=== PATIENT | female | born 1985 | race Two or more races ===

== ENCOUNTER 2020-09-10 10:07 | Outpatient (REF) | payer OTHER, SELFPAY ==
[2020-09-10 10:16] LABS: COVID-19 Test Positive (Negative)
== END 2020-09-10 10:08 | disposition home or self-care (01) ==
LOC: HO.EMPCOV 10:07
PROVIDERS: Visit Provider Internal Medicine
DX: Z20.822 Contact with and (suspected) exposure to COVID-19 (principal)
CPT/HCPCS: 36415; 87635; C9803

== ENCOUNTER 2020-12-17 11:36 | Outpatient (REF) | payer OTHER, SELFPAY | END 2020-12-17 11:37 | disposition home or self-care (01) | LOC: HO.LAB 11:36 | PROVIDERS: Visit Provider Internal Medicine | DX: Z20.822 Contact with and (suspected) exposure to COVID-19 (principal) | CPT/HCPCS: C9803; U0003; U0005 ==

== ENCOUNTER 2020-12-20 09:54 | Outpatient (REF) | payer OTHER, SELFPAY | END 2020-12-20 09:55 | disposition home or self-care (01) | LOC: HO.LAB 09:54 | PROVIDERS: Visit Provider Internal Medicine | DX: Z20.822 Contact with and (suspected) exposure to COVID-19 (principal) | CPT/HCPCS: C9803; U0003; U0005 ==

== ENCOUNTER 2020-12-21 13:33 | Outpatient (REF) | payer OTHER, SELFPAY ==
[2020-12-21 14:31] LABS: Influenza A PCR NEGATIVE (Negative); Influenza B PCR NEGATIVE (Negative); Resp Syncy Virus RNA Qual PCR NEGATIVE (Negative); SARS COV2 PCR INHOUSE NEGATIVE (Negative)
== END 2020-12-21 13:34 | disposition home or self-care (01) ==
LOC: HO.LAB 13:33
PROVIDERS: PCP Psychiatry & Neurology Neurology; Referring Provider Internal Medicine; Visit Provider Internal Medicine
DX: Z20.822 Contact with and (suspected) exposure to COVID-19 (principal)
CPT/HCPCS: 0241U; 36415

== ENCOUNTER 2021-05-14 18:53 | Emergency (ER) | payer OTHER, SELFPAY ==
--- NOTE | ~2021-05-14 | CT_ITS ---
EXAMINATION: CT ABDOMEN AND PELVIS WITH CONTRAST CLINICAL INFORMATION: Lower abdominal pain. COMPARISON: Pelvic ultrasound done earlier the same day. TECHNIQUE: Multidetector volumetric images were obtained from the superior aspect of the liver through the pubic symphysis following administration 85 mL of Omnipaque 350 intravenous contrast. Sagittal and coronal reformatted images were obtained on the technologist's workstation. Oral Contrast: No. This CT examination was performed using dose optimization techniques as appropriate, variously including the following: *Automated exposure control. *Adjustment of mA and/or kV according to patient size (this includes techniques or standardized protocols for targeted exams where dose is matched to indication/reason for exam; i.e. extremities or head). *Use of iterative reconstruction technique. DLP: 589 mGy-cm FINDINGS: LUNG BASES: The visualized lung bases are unremarkable. LIVER, GALLBLADDER, AND BILIARY TREE: The liver is normal in size, shape, and attenuation. Posterior right hepatic 0.3 cm hypodensity, too small to characterize. No additional focal hepatic lesion or biliary ductal dilatation is present. The gallbladder is unremarkable with no evidence of radiopaque gallstones, gallbladder wall thickening, or obvious pericholecystic inflammatory changes. PANCREAS: Unremarkable. SPLEEN: Unremarkable. ADRENAL GLANDS: Unremarkable. KIDNEYS AND URETERS: The kidneys are normal in size, shape, and attenuation. No hydronephrosis, hydroureter, or calculi seen. No perinephric stranding. BLADDER: Unremarkable. GASTROINTESTINAL TRACT: No bowel wall thickening or associated inflammatory change. No small or large bowel obstruction. Unremarkable appendix. PERITONEAL CAVITY: Trace pelvic free fluid. No organized fluid collection/abscess formation. No intra-abdominal mass. No intra-abdominal free air. ABDOMINAL WALL: No significant hernia is appreciated. LYMPH NODES: Normal. VASCULAR: Unremarkable. PELVIC VISCERA: IUD within the uterus. Bilateral ovarian follicles, better evaluated on the pelvic ultrasound done earlier the same day. OSSEOUS STRUCTURES: Unremarkable. CT/CT abdomen pelvis w con IMPRESSION: 1. No bowel wall thickening or associated inflammatory change. No small or large bowel obstruction. Unremarkable appendix. 2. Trace pelvic free fluid. IUD within the uterus. Bilateral ovarian follicles. Findings better evaluated on the pelvic ultrasound done earlier the same day. 3. No intra-abdominal mass, lymphadenopathy, or abscess formation.
--- NOTE | ~2021-05-14 | US_ITS ---
EXAMINATION: US PELVIS CLINICAL INFORMATION: Lower abdominal pain. Last menstrual period 2 weeks ago. COMPARISON: No similar priors. TECHNIQUE: Ultrasound of the pelvis is performed using both transabdominal and transvaginal transducers along with Doppler. Transvaginal imaging is performed due to inadequate visualization transabdominally. FINDINGS: Uterus: The uterus is anteverted and measures 9.1 x 4.4 x 5.0 cm. Normal myometrial echogenicity. No visible fibroid. The endometrium measures up to 11 mm in maximum thickness without focal abnormalities. An IUD is in appropriate positioning within the endometrial cavity. Nabothian cysts overlies the region of the cervix. Adnexa: Both ovaries are visualized. There is normal color flow to the adnexa. There is no ovarian torsion. There is no pelvic ascites or fluid collection. Right ovary measures 5.3 x 2.4 x 2.6 cm. Left ovary measures 3.9 x 3.5 x 2.7 cm. There is a 1.9 x 0.9 x 1.6 cm avascular cystic lesion in the left ovary with an hyperechoic and thick rim and hyperemia, most consistent with a corpus luteal cyst, not requiring further workup. US/US pelvic and transvaginal IMPRESSION: No acute sonographic abnormalities. No evidence of ovarian torsion at the moment of this study. IUD in appropriate positioning.
--- NOTE | 2021-05-14 19:05 | ED.ABDPAIN ---
HPI - Abdominal Pain General Chief Complaint: Abdominal Pain Stated Complaint: abd pain, nausea Time Seen by Provider: 05/14/21 19:05 Source: patient Mode of arrival: ambulatory Limitations: no limitations History of Present Illness HPI narrative: 35-year-old female no medical history presents N/C department with sudden onset abdominal pain x1 hour. She states that the pain came on suddenly with severe in nature, and then the pain diminished a little bit. She also reports associated nausea, fatigue and feeling lightheaded. She states that she only felt lightheaded when she was having the severe abdominal pain. Pain is localized above the suprapubic region, it does not radiate. The pain initially was a 10/10, however now it is about a 7/10, it is constant in nature. LMP 2 weeks ago. Denies chest pain, shortness of breath, fevers, chills, and vomiting. No previous abdominal surgeries MD elicited complaint: abdominal pain Pertinent past history: none Onset (ago): hour(s) (1) Pain Consistency: constant Location: suprapubic Severity: severe Pain scale (0-10): 7 Quality: stabbing and sharp Radiation: suprapubic Migration to: no migration Exacerbating factors: nothing Relieving factors: nothing Associated symptoms: nausea and other (lightheaded) Related Data Previous Rx's Medication Instructions Recorded lorazepam 0.5 mg tablet (Ativan) 0.5 mg PO DAILY PRN #14 tab 10/25/20 Allergies Allergy/AdvReac Type Severity Reaction Status Date / Time No Known Allergies Allergy Verified 10/25/20 09:54 Review of Systems Review of Systems Constitutional : No Weight loss, No Fever, No Chills, No Night Sweats, No Fatigue, No Malaise ENT/Mouth : No Hearing loss, No Ear Pain, No Nasal Congestion, No Sinus Pain, No Hoarseness, No sore throat, No Rhinorrhea, No Swallowing Difficulty Eyes: No Eye Pain, No Swelling, No Redness, No Foreign Body, No Discharge, No Vision Changes Cardiovascular : No Chest Pain, No SOB, No Dyspnea on Exertion, No Orthopnea, No Edema, No Palpitations Respiratory : No Cough, No Sputum, No Wheezing, No Smoke Exposure, No Dyspnea Gastrointestinal : + Nausea, No Vomiting, no Diarrhea, + abdominal Pain, No Hematochezia, No Melena Genitourinary : no irregular bleeding, No Dysuria, No Urinary Frequency, No Hematuria, No Urinary Incontinence, No Urgency, No Flank Pain, No Urinary Flow Changes, No Hesitancy Musculoskeletal : No joint pain, No Myalgias, No Joint Swelling Skin : No Skin Lesions, No rash Neuro : No Weakness, No Numbness, No Paresthesias, No Loss of Consciousness, No Dizziness, No Headache, + feels lightheaded Reports Abnormal speech present Physical Exam Vital Signs: Vital Signs: Last Vital Signs Temp 98.3 F 05/14/21 19:11 Pulse 61 05/14/21 19:11 Resp 18 05/14/21 19:11 BP 116/62 05/14/21 19:11 Pulse Ox 100 05/14/21 19:11 Body Mass Index 27.9 Const: General: cooperative Nutritional Appearance: average body habitus Orientation/consciousness: oriented to person, oriented to place and oriented to time Limitations: no limitations HENMT: Head: Yes normal to inspection Mouth: Normal oral and palatal mucosa present Eyes: General: appearance normal, both eyes and all related structures Pupils: Equal, round and reactive pupils present EOM: EOMs intact bilaterally Neck: Neck: Yes normal visual inspection and Yes full ROM Thyroid: Thyroid normal Lymphatic: no lymphadenopathy noted Resp: Effort & Inspection: normal respiratory effort and able to speak in complete sentences Auscultation: clear to auscultation bilaterally Cardio: Palpation: normal PMI Rate: regular rate Rhythm: regular rhythm and abnormal rhythm Heart sounds: S1 normal heart sound present and S2 normal heart sound present GI: Inspection: Yes normal to inspection Palpation (GI): Soft to palpation and Tenderness to palpation present (GI) suprapubicly; Negative for with no rebound tenderness and Rovsing's sign negative Auscultation: normal bowel sounds : General: Yes no CVA tenderness Back/Spine/Pelvis: Back: no CVA tenderness Neuro: General: oriented to person, oriented to place and oriented to time Cranial nerves: Yes CN's II-XII intact bilaterally and Yes Equal, round and reactive pupils present Cognition (Neuro): normal cognition Speech: Abnormal speech present Gait exam (Neuro): Normal gait present Motor exam (neuro): 5/5 motor strength present throughout Sensory Exam: Normal double simultaneous stimulation for sensation Extrem: General: Yes normal to inspection, Yes full ROM and Yes no pedal edema Psych: Mental Status: mental status grossly normal Course Reevaluation(s) Reevaluation #1: Urine clean, labs show now signs of infection, no electrolyte abnormalities. Ultrasound shows no acute findings. Patient still reports pain with palpation of the suprapubic region. At this time there is no evident reason for patient's pain a CT of the abdomen and pelvis has been ordered. MDM - Abdominal Pain MDM Narrative Medical decision making narrative: 35-year-old female none on medical history presents to the emergency department with sudden onset suprapubic abdominal pain, nausea x1 hour. She states initially her pain was 10/10, and when she was having the severe pain she felt lightheaded, the pain is now a 7/10. The pain is constant in nature, does not radiate. She denies previous abdominal surgeries. Upon physical examination there is tenderness to palpation in the suprapubic region. No pain to palpation in the right lower quadrant, negative Rovsing sign, negative McBurney's point, unlikely that this is appendicitis. Negative Putnam sign upon exam, unlikely cholecystitis. Will rule out ovarian etiologies with an ultrasound. At this time basic labs have been ordered, as well as a UA, urine , and ultrasound of the pelvis. Lab Data Result diagrams: 05/14/21 19:15 05/14/21 19:15 Labs: Lab Results 05/14/21 05/14/21 05/14/21 Range/Units 19:15 19:15 19:15 WBC 10.3 (4.8-10.8) X10*3/uL RBC 4.22 (4.20-5.50) X10*6/uL Hgb 12.6 (12.0-16.0) g/dl Hct 37.5 (37-47) % MCV 88.9 (80-98) fL MCH 29.9 (27.0-33.0) pg MCHC 33.6 (31.0-35.0) g/dl RDW 12.8 (11.0-16.0) % Plt Count 163 (160-400) X10*3/uL MPV 13.0 H (9.4-12.3) fL Immature Gran % (Auto) 0.3 (0.0-0.4) % Neut % (Auto) 65.0 (45-73) % Lymph % (Auto) 23.5 (20-40) % [place] % (Auto) 7.4 (2-11) % Eos % (Auto) 3.1 (0-4) % Baso % (Auto) 0.7 (0-2) % Lymph # (Auto) 2.4 (1.2-4.9) X10*3/uL [place] # (Auto) 0.8 (0.1-1.2) X10*3/uL Eos # (Auto) 0.3 (0.0-0.4) X10*3/uL Baso # (Auto) 0.1 (0.0-0.2) X10*3/uL Abs Immat Gran (auto) 0.03 (0.00-0.03) X10*3/uL Absolute Neuts (auto) 6.7 (2.0-8.3) X10*3/uL Absolute Nucleated RBC 0.000 (0.0-0.012) X10*3/uL Nucleated RBC % (auto) 0.0 (0.0-0.2) /100WBC Sodium 137 (135-145) mmol/L Potassium 4.0 (3.3-5.1) mmol/L Chloride 105 (96-108) mmol/L Carbon Dioxide 24 (22-29) mmol/L Anion Gap 12 (12-20) BUN 14 (9-16) mg/dL Creatinine 0.80 (0.5-1.4) mg/dL Estim Creat Clear Calc 96.6 Estimated GFR > 60 Random Glucose 105 (60-115) mg/dL Calcium 8.9 (8.4-10.2) mg/dL Urine Color YELLOW Urine Appearance CLEAR Urine pH 7.0 (5.0-8.0) Ur Specific [place] 1.010 (1.005-1.025) Urine Protein NEG (NEG-TRACE) MG/DL Urine Glucose (UA) NEG (NEG) MG/DL Urine Ketones NEG (NEG) MG/DL Urine Blood NEG (NEG) Urine Nitrite NEG (NEG) Ur Leukocyte Esterase NEG (NEG) Urine Test (NEGATIVE) 05/14/21 Range/Units 19:15 WBC (4.8-10.8) X10*3/uL RBC (4.20-5.50) X10*6/uL Hgb (12.0-16.0) g/dl Hct (37-47) % MCV (80-98) fL MCH (27.0-33.0) pg MCHC (31.0-35.0) g/dl RDW (11.0-16.0) % Plt Count (160-400) X10*3/uL MPV (9.4-12.3) fL Immature Gran % (Auto) (0.0-0.4) % Neut % (Auto) (45-73) % Lymph % (Auto) (20-40) % [place] % (Auto) (2-11) % Eos % (Auto) (0-4) % Baso % (Auto) (0-2) % Lymph # (Auto) (1.2-4.9) X10*3/uL [place] # (Auto) (0.1-1.2) X10*3/uL Eos # (Auto) (0.0-0.4) X10*3/uL Baso # (Auto) (0.0-0.2) X10*3/uL Abs Immat Gran (auto) (0.00-0.03) X10*3/uL Absolute Neuts (auto) (2.0-8.3) X10*3/uL Absolute Nucleated RBC (0.0-0.012) X10*3/uL Nucleated RBC % (auto) (0.0-0.2) /100WBC Sodium (135-145) mmol/L Potassium (3.3-5.1) mmol/L Chloride (96-108) mmol/L Carbon Dioxide (22-29) mmol/L Anion Gap (12-20) BUN (9-16) mg/dL Creatinine (0.5-1.4) mg/dL Estim Creat Clear Calc Estimated GFR Random Glucose (60-115) mg/dL Calcium (8.4-10.2) mg/dL Urine Color Urine Appearance Urine pH (5.0-8.0) Ur Specific [place] (1.005-1.025) Urine Protein (NEG-TRACE) MG/DL Urine Glucose (UA) (NEG) MG/DL Urine Ketones (NEG) MG/DL Urine Blood (NEG) Urine Nitrite (NEG) Ur Leukocyte Esterase (NEG) Urine Test NEGATIVE (NEGATIVE) Imaging Data Pelvic ultrasound: Attestation: I personally reviewed and interpreted this imaging study as follows: Radiologist's impression: FINDINGS: Uterus: The uterus is anteverted and measures 9.1 x 4.4 x 5.0 cm. Normal myometrial echogenicity. No visible fibroid. The endometrium measures up to 11 mm in maximum thickness without focal abnormalities. An IUD is in appropriate positioning within the endometrial cavity. Nabothian cysts overlies the region of the cervix. Adnexa: Both ovaries are visualized. There is normal color flow to the adnexa. There is no ovarian torsion. There is no pelvic ascites or fluid collection. Right ovary measures 5.3 x 2.4 x 2.6 cm. Left ovary measures 3.9 x 3.5 x 2.7 cm. There is a 1.9 x 0.9 x 1.6 cm avascular cystic lesion in the left ovary with an hyperechoic and thick rim and hyperemia, most consistent with a corpus luteal cyst, not requiring further workup. US/US pelvic and transvaginal IMPRESSION: No acute sonographic abnormalities. No evidence of ovarian torsion at the moment of this study. IUD in appropriate positioning. Discharge Plan Discharge Clinical Impression: Constipation Qualifiers: Constipation type: unspecified constipation type Qualified Code(s): K59.00 - Constipation, unspecified Abdominal pain Qualifiers: Abdominal location: unspecified location Qualified Code(s): R10.9 - Unspecified abdominal pain Patient Disposition: Home, Self-Care Instructions: Constipation (ED), Abdominal Pain (ED) Additional Instructions: Your US did not show any acute findings, there is a small cyst noted, however unlikely causing you symptoms Follow-up with your primary care provider Return to the emergency department with new or worsening symptoms Prescriptions: No Action lorazepam [Ativan] 0.5 mg tablet 0.5 mg PO DAILY PRN (Reason: anxiety) Qty: 14 RF: 1 Referrals: Tiara Rosado MD [Primary Care Provider] - 2 days [facility] Social History Social History Advance Directives: No Advance Directives Information Provided: Yes Patient : No
[2021-05-14 19:11] VITALS: BP 116/62; PULSE 61; RESP 18; TEMP 36.8; O2SAT 100; BMI 27.9
[2021-05-14 19:29] LABS: MANUAL DIFF FLAG NO
[2021-05-14 19:31] LABS: Appearance Urine CLEAR; Color Urine YELLOW; Glucose Urine UA NEG (NEG); Leukocyte Esterase Urine NEG (NEG); Nitrite Urine NEG (NEG); Urine Blood NEG (NEG); Urine Ketones NEG (NEG); Urine Protein NEG (NEG-TRACE)
[2021-05-14 19:32] LABS: Urine Pregnancy NEGATIVE (NEGATIVE)
[2021-05-14 19:33] LABS: UPreg QC Valid YES
[2021-05-14 19:43] LABS: Basophils Absolute Auto 0.1 X10*3/uL (0.0-0.2); Basophils Percent Auto 0.7 % (0-2); Eosinophils Absolute Auto 0.3 X10*3/uL (0.0-0.4); Eosinophils Percent Auto 3.1 % (0-4); Hematocrit 37.5 % (37-47); Hemoglobin 12.6 g/dl (12.0-16.0); Imm Gran Abs Auto 0.03 X10*3/uL (0.00-0.03); Imm Gran Pct Auto 0.3 % (0.0-0.4); Lymphocytes Absolute Auto 2.4 X10*3/uL (1.2-4.9); Lymphocytes Percent Auto 23.5 % (20-40); Mean Corpuscular HGB Conc 33.6 g/dl (31.0-35.0); Mean Corpuscular Hemoglobin 29.9 pg (27.0-33.0); Mean Corpuscular Volume 88.9 fL (80-98); Monocytes Absolute Auto 0.8 X10*3/uL (0.1-1.2); Monocytes Percent Auto 7.4 % (2-11); Neutrophils Absolute Auto 6.7 X10*3/uL (2.0-8.3); Platelet Count 163 X10*3/uL (160-400); Red Blood Count 4.22 X10*6/uL (4.20-5.50); Red Cell Distribution Width 12.8 % (11.0-16.0); White Blood Count 10.3 X10*3/uL (4.8-10.8)
[2021-05-14 19:45] LABS: Anion Gap 12 (12-20); Blood Urea Nitrogen 14 mg/dL (9-16); Calcium 8.9 mg/dL (8.4-10.2); Carbon Dioxide 24 mmol/L (22-29); Chloride 105 mmol/L (96-108); Creatinine Clr Calc Pharmacy 96.6; Estimated Glomerular Filt Rate > 60; Glucose Random 105 mg/dL (60-115); Sodium 137 mmol/L (135-145)
[2021-05-14] MEDS: iohexoL 350 MG/ML 100 ML INFUS..BTL IV (20:00)
[2021-05-14] MEDS: 0.9 % Sodium Chloride 1,000 ML 999 ML IVCONT (20:20)
[2021-05-14 21:10] VITALS: BP 119/71; PULSE 68; RESP 18; O2SAT 99
== END 2021-05-14 22:23 | disposition home or self-care (01) ==
PROVIDERS: Internal Medicine; Emergency Provider Student in an Organized Health Care Education/Training Program; PCP Internal Medicine
DX: R10.9 Unspecified abdominal pain (principal); K59.00 Constipation, unspecified
CPT/HCPCS: 36415; 74177; 76830; 76856; 80048; 81003; 81025; 85025; 96360; 99284; Q9967

== ENCOUNTER 2024-06-26 17:18 | Emergency (ER) | payer SELFPAY ==
[2024-06-26] VITALS (7 sets, daily range): BP systolic 94–126; BP diastolic 56–74; PULSE 60–76; RESP 16–18; TEMP 36.4–37; O2SAT 96–100; BMI 27.3
--- NOTE | ~2024-06-26 | US_ITS ---
EXAMINATION: ULTRASOUND PELVIC, COMPLETE CLINICAL INFORMATION: Abdominal pain. Pelvic pain. COMPARISON: CT abdomen and pelvis June 26, 2024. Pelvic ultrasound May 14, 2021. TECHNIQUE: Transvaginal: Used to better visualize pelvic structures Transabdominal: Not adequate for visualization. Spectral Doppler and color Doppler exam was utilized. LMP: Uncertain FINDINGS: UTERUS: IUD in the endometrial cavity in good position. Nabothian cysts present. Uterus is anteverted and anteflexed. Uterus measures 8.6 x 4.7 x 5.2 cm. Endometrial thickness 0.8 cm with a small volume of fluid in the endometrial cavity. ADNEXA: Ovarian vascularity:Doppler demonstrates both arterial and venous vascular flow in the right and left ovary. No evidence of ovarian torsion. Right Ovary: 5.7 x 2.5 x 3.3 cm. Right ovarian volume 24.6 mL. There is a cyst present in the right ovary which is anechoic. This measures 2.8 x 1.6 x 2.1 cm. Findings are overwhelmingly likely to represent a normal ovarian follicle. No followup imaging recommended. Left Ovary: 3.6 x 3 x 3 cm. Volume 16.9 mL. Cul-de-sac: No Fluid US/US pelvic and transvaginal IMPRESSION: 1. IUD in the endometrial cavity in good position. 2. Normal ultrasound of pelvis. Electronically signed by: Buddy Jefferson MD 06/26/2024 10:05 PM [facility]
--- NOTE | ~2024-06-26 | US_ITS ---
EXAMINATION: ULTRASOUND PELVIC, COMPLETE CLINICAL INFORMATION: Abdominal pain. Pelvic pain. COMPARISON: CT abdomen and pelvis June 26, 2024. Pelvic ultrasound May 14, 2021. TECHNIQUE: Transvaginal: Used to better visualize pelvic structures Transabdominal: Not adequate for visualization. Spectral Doppler and color Doppler exam was utilized. LMP: Uncertain FINDINGS: UTERUS: IUD in the endometrial cavity in good position. Nabothian cysts present. Uterus is anteverted and anteflexed. Uterus measures 8.6 x 4.7 x 5.2 cm. Endometrial thickness 0.8 cm with a small volume of fluid in the endometrial cavity. ADNEXA: Ovarian vascularity:Doppler demonstrates both arterial and venous vascular flow in the right and left ovary. No evidence of ovarian torsion. Right Ovary: 5.7 x 2.5 x 3.3 cm. Right ovarian volume 24.6 mL. There is a cyst present in the right ovary which is anechoic. This measures 2.8 x 1.6 x 2.1 cm. Findings are overwhelmingly likely to represent a normal ovarian follicle. No followup imaging recommended. Left Ovary: 3.6 x 3 x 3 cm. Volume 16.9 mL. Cul-de-sac: No Fluid US/US pelvic ovarian doppler IMPRESSION: 1. IUD in the endometrial cavity in good position. 2. Normal ultrasound of pelvis. Electronically signed by: Buddy Jefferson MD 06/26/2024 10:05 PM [facility]
--- NOTE | ~2024-06-26 | CT_ITS ---
EXAMINATION: CT ABDOMEN AND PELVIS WITH CONTRAST CLINICAL INFORMATION: Lower abdominal pain COMPARISON: None available. TECHNIQUE: Multidetector volumetric images were obtained from the superior aspect of the liver through the pubic symphysis following administration 85 mL of Omnipaque 350 intravenous contrast. Sagittal and coronal reformatted images were obtained on the technologist's workstation. Oral contrast: No This CT examination was performed using dose optimization techniques as appropriate, variously including the following: *Automated exposure control *Adjustment of mA and/or kV according to patient size (this includes techniques or standardized protocols for targeted exams where dose is matched to indication/reason for exam; i.e. extremities or head) *Use of iterative reconstruction technique DLP: 550 mGy-cm FINDINGS: LUNG BASES: The visualized lung bases are unremarkable. LIVER, GALLBLADDER, AND BILIARY TREE: The liver is normal in size, shape, and attenuation. No focal hepatic lesion or biliary ductal dilatation is present. The gallbladder is unremarkable with no evidence of radiopaque gallstones, gallbladder wall thickening, or obvious pericholecystic inflammatory changes. PANCREAS: Unremarkable. SPLEEN: Unremarkable. ADRENAL GLANDS: Unremarkable. KIDNEYS AND URETERS: The kidneys are normal in size, shape, and attenuation. No hydronephrosis, hydroureter, or calculi seen. No perinephric stranding. BLADDER: Unremarkable. GASTROINTESTINAL TRACT: The small and large bowel are unremarkable. The appendix is unremarkable. ABDOMINAL WALL: No significant hernia is appreciated. LYMPH NODES: Normal. VASCULAR: Unremarkable. PELVIC VISCERA: The uterus and left adnexa are unremarkable. Intrauterine device centrally located within the uterus. Note is made of an enhancing follicle in the right ovary with a trace free fluid in the right adnexa which could represent a ruptured cyst. OSSEOUS STRUCTURES: Unremarkable. CT/CT abdomen pelvis w IV con IMPRESSION: 1. No acute process. 2. Enhancing follicle in the right ovary with trace free fluid in the right adnexa which could represent a ruptured cyst. Electronically signed by: Mesfin Cardenas MD 06/26/2024 10:19 PM [facility]
[2024-06-26 18:46] LABS: Hematocrit 36.8 % (37.0-47.0); Hemoglobin 12.5 g/dl (12.0-16.0); Mean Corpuscular Hemoglobin 30.1 pg (27.0-33.0); Mean Corpuscular Volume 88.7 fL (80.0-98.0); Mean Platelet Volume 12.4 fL (9.4-12.3); Platelet Count 163 X10*3/uL (160-400); Red Blood Count 4.15 X10*6/uL (4.20-5.50); Red Cell Distribution Width 12.7 % (11.0-16.0)
[2024-06-26 18:48] LABS: WBC ABN SCTR FOR CBC 1
[2024-06-26 18:59] LABS: Alanine Aminotransferase 18 U/L (0-31); Albumin Level 3.6 g/dL (3.5-5.0); Alkaline Phosphatase 69 U/L (39-117); Anion Gap 11 (12-20); Aspartate Amino Transferase 21 U/L (5-31); Bilirubin Total 0.2 mg/dL (0.0-1.0); Blood Urea Nitrogen 14 mg/dL (9-16); Calcium 8.7 mg/dL (8.4-10.2); Carbon Dioxide 24 mmol/L (22-29); Chloride 107 mmol/L (96-108); Estimated Glomerular Filt Rate > 60; Glucose Random 142 mg/dL (60-115); Potassium 3.8 mmol/L (3.3-5.1); Sodium 138 mmol/L (135-145); Total Protein 6.2 g/dL (6.5-8.0)
[2024-06-26 19:11] LABS: Basophils Percent Manual 1 % (0-2); Eosinophils Percent Manual 2 % (0-4); Lymphocytes Percent Manual 15 % (20-40); Monocytes Percent Manual 3 % (2-11); Neutrophils Percent Manual 79 % (45-73)
[2024-06-26 19:12] LABS: Platelet Estimate NORMAL (NORMAL); Platelet Morphology Comment NORMAL; RBC Morphology NORMAL
[2024-06-26 19:20] LABS: Basophils Abs Manual 0.1 X10*3/uL (0.0-0.2); Eosinophils Absolute Manual 0.2 X10*3/uL (0.0-0.4); Lymphocytes Absolute Manual 1.8 X10*3/uL (1.2-4.9); Monocytes Absolute Manual 0.4 X10*3/uL (0.1-1.2); White Blood Count 12.3 X10*3/uL (4.8-10.8)
[2024-06-26 19:21] LABS: Band Neutrophils Percent 0 % (3-5); Neutrophils Absolute Manual 9.7 X10*3/uL (2.0-8.3)
[2024-06-26 20:52] LABS: Appearance Urine Clear; Color Urine Yellow; Glucose Urine UA Negative (Negative); Leukocyte Esterase Urine Trace (Negative); Nitrite Urine Negative (Negative); Specific Gravity - Urine 1.025 (1.005-1.025); UMIC TRIGGER UACC YES; Urine Blood Negative (Negative); Urine Ketones Trace mg/dL (Negative); Urine Protein Negative (Neg-Trace)
[2024-06-26 20:54] LABS: Bacteria Urine None Seen (None Seen); Hyaline Casts Urine 0-2 /LPF (0-2); RBC Urine 0-2 /HPF (0-2); Squamous Epithelial Cell Urine 0-2 /HPF (0-2); UACC Culture Trigger YES
[2024-06-26 20:56] LABS: UPreg QC Valid YES; Urine Pregnancy NEGATIVE (NEGATIVE)
[2024-06-26 20:56] LABS: HCG Quantitative < 2 mIU/mL
--- NOTE | 2024-06-26 21:35 | PC.NURSE ---
US at bedside-- 20G Iv placed in R-ac- pt to have CT w/contrast. pt sts that she feels the fentanyl finally hit , no complaints of pain at thsi time
--- NOTE | 2024-06-26 21:58 | PC.NURSE ---
pt to CT scan
[2024-06-26] MEDS: iohexoL 350 MG/ML 100 ML INFUS..BTL 85 ML IV (22:04)
--- NOTE | 2024-06-26 22:56 | ED.GENADULT ---
HPI - General Adult General Chief complaint: Abdominal Pain Stated complaint: lower abd pressure Time Seen by Provider: 06/26/24 20:20 Source: patient Mode of arrival: ambulatory Limitations: no limitations History of Present Illness ED Provider: Roni DUCKWORTH HPI narrative: 38-year-old female history of ovarian cyst presents to ED for sudden suprapubic right lower quadrant abdominal pain that occurred enema so severe she acquired 50 mcg IV fentanyl from EMS. Patient states presently she feels better. Trauma, dysuria, hematuria, flank pain, nausea, vomiting. Patient denies any vaginal bleeding or vaginal discharge. Patient states it is having before in the past. Related Data Previous Rx's ?Medication ?Instructions ?Recorded lorazepam 0.5 mg tablet (Ativan) 0.5 mg PO DAILY PRN anxiety #14 10/25/20 tabs naproxen 500 mg tablet 500 mg PO BID PRN pain 7 days #14 06/26/24 tabs Allergies Allergy/AdvReac Type Severity Reaction Status Date / Time No Known Allergies Allergy Verified 06/26/24 17:31 Review of Systems Review of Systems: Sudden suprapubic right lower quadrant pain that resolved after we speak given fentanyl by ambulance Yes all other systems are reviewed and are negative PMFSH Social History Social History Alcohol intake: never Patient Tobacco Use Status: Never used Tobacco Smoked in Last 30 Days: No Use of substances other than those prescribed or required for medical reasons: No Advance Directives: No Advance Directives Information Provided: No Do you have a plan to hurt others: No Plan Patient : No Physical Exam ED Vital Signs: Vital Signs - 24 hr 06/26/24 17:29 06/26/24 17:49 06/26/24 20:07 Temperature 97.9 F 98.1 F 98.1 F Pulse Rate 76 60 62 Respiratory Rate 16 18 16 Blood Pressure 94/56 L 104/64 104/60 Pulse Oximetry 97 97 96 Oxygen Delivery Method Room Air Room Air Room Air 06/26/24 22:31 06/26/24 23:50 06/26/24 23:56 Temperature 97.5 F 98.6 F 98.6 F Pulse Rate 62 61 61 Respiratory Rate 16 18 18 Blood Pressure 110/57 L 125/71 125/71 Pulse Oximetry 98 98 98 Oxygen Delivery Method Room Air Room Air Room Air BMI result Body Mass Index 27.3 Const General: cooperative, healthy appearing, comfortable and no acute distress Orientation/consciousness: patient oriented x3 [facility] Head: Yes normal to inspection, Yes No palpable skull fracture present, Yes normocephalic and Yes atraumatic Eyes General: appearance normal, both eyes and all related structures Neck Neck: Yes normal visual inspection, Yes full ROM, Yes no lymphadenopathy, Yes no meningeal signs, Yes trachea midline, Yes supple, No anterior neck swelling and No tender Chest Chest palpation & inspection: normal inspection of the chest and normal palpation of entire chest wall Resp Effort & Inspection: normal respiratory effort and able to speak in complete sentences Auscultation: clear to auscultation bilaterally Cardio Jugular venous distension: no JVD Heart sounds: S1 normal heart sound present and S2 normal heart sound present GI Inspection: Yes normal to inspection Palpation (GI): Tenderness to palpation present (GI) in the RLQ (mild) and suprapubicly (mild), no guarding and not rigid General: No CVA tenderness and Yes no CVA tenderness Back/Spine/Pelvis Back: no CVA tenderness, No CVA tenderness and No back tenderness Skin General skin exam: no rashes or lesions noted, elasticity normal and turgor normal Neuro General: patient oriented x3, gait normal, tone normal, moves all extremities, Normal light touch and pain sensation, no meningeal signs, no focal motor deficits, CN's II-XI intact bilaterally and normal sensation to monofilament Extrem General: Yes normal to inspection, Yes full ROM and Yes capillary refill normal Psych Appearance: grossly normal, well kempt and not disheveled Medications Administered Discontinued Medications Generic Name Dose Route Start Last Admin Trade Name Freq PRN Reason Stop Dose Admin Iohexol 85 ml 06/26/24 22:03 06/26/24 22:04 Iohexol 350 Mg/Ml 100 Ml Infus..Btl IV 06/26/24 22:04 85 ml ONCE ONE Administration Medical Decision Making Medical Decision Making MDM Narrative: 38-year-old female presents to ED for sudden suprapubic right lower quadrant pain that caused her to bend over. Patient was given fentanyl by EMS symptoms resolved. Labs are normal. Negative . Patient was sent for abdominal CT scan ultrasound of pelvic area. CT scan shows right ovarian cyst rupture. Ultrasound negative for ovarian rupture but does shows a varus Doppler. Patient explained diagnosis and given copy of labs and images and informed to follow up with primary care provider. Patient explained worrisome signs and informed to return to the ED immediately. Differential Diagnosis Differential Diagnoses: The differential diagnosis associated with the presentation includes (Appendicitis, torsion, UTI) Admission/Observation Consideration of admission/observation: Escalation of care including admission/observation considered Lab Data MDM Lab Attestation statement: I reviewed the patient's lab results. 06/26/24 18:39 06/26/24 18:39 Labs: Lab Results 06/26/24 06/26/24 Range/Units 18:39 20:39 WBC 12.3 H (4.8-10.8) X10*3/uL RBC 4.15 L (4.20-5.50) X10*6/uL Hgb 12.5 (12.0-16.0) g/dl Hct 36.8 L (37.0-47.0) % MCV 88.7 (80.0-98.0) fL MCH 30.1 (27.0-33.0) pg MCHC 34.0 (31.0-35.0) g/dl RDW 12.7 (11.0-16.0) % Plt Count 163 (160-400) X10*3/uL MPV 12.4 H (9.4-12.3) fL Immature Gran % (Auto) Cancelled Neut % (Auto) Cancelled Lymph % (Auto) Cancelled [place] % (Auto) Cancelled Eos % (Auto) Cancelled Baso % (Auto) Cancelled Lymph # (Auto) Cancelled [place] # (Auto) Cancelled Eos # (Auto) Cancelled Baso # (Auto) Cancelled Abs Immat Gran (auto) Cancelled Absolute Neuts (auto) Cancelled Absolute Nucleated RBC 0.000 (0.0-0.012) X10*3/uL Nucleated RBC % (auto) 0.0 (0.0-0.2) /100WBC Neutrophils % (Manual) 79 H (45-73) % Band Neutrophils % 0 L (3-5) % Lymphocytes % (Manual) 15 L (20-40) % Monocytes % (Manual) 3 (2-11) % Eosinophils % (Manual) 2 (0-4) % Basophils % (Manual) 1 (0-2) % Abs Neuts (Manual) 9.7 H (2.0-8.3) X10*3/uL Lymphocytes # (Manual) 1.8 (1.2-4.9) X10*3/uL Monocytes # (Manual) 0.4 (0.1-1.2) X10*3/uL Eosinophils # (Manual) 0.2 (0.0-0.4) X10*3/uL Basophils # (Manual) 0.1 (0.0-0.2) X10*3/uL Platelet Estimate NORMAL (NORMAL) Plt Morphology Comment NORMAL RBC Morphology NORMAL Sodium 138 (135-145) mmol/L Potassium 3.8 (3.3-5.1) mmol/L Chloride 107 (96-108) mmol/L Carbon Dioxide 24 (22-29) mmol/L Anion Gap 11 L (12-20) BUN 14 (9-16) mg/dL Creatinine 0.81 (0.5-1.4) mg/dL Estim Creat Clear Calc 102.0 Estimated GFR > 60 Random Glucose 142 H (60-115) mg/dL Calcium 8.7 (8.4-10.2) mg/dL Magnesium 2.0 (1.6-2.6) mg/dL Total Bilirubin 0.2 (0.0-1.0) mg/dL AST 21 (5-31) U/L ALT 18 (0-31) U/L Alkaline Phosphatase 69 (39-117) U/L Total Protein 6.2 L (6.5-8.0) g/dL Albumin 3.6 (3.5-5.0) g/dL Beta HCG, Quant < 2 mIU/mL Urine Color Yellow Urine Appearance Clear Urine pH 6.0 (5.0-9.0) Ur Specific [place] 1.025 (1.005-1.025) Urine Protein Negative (Neg-Trace) mg/dL Urine Glucose (UA) Negative (Negative) mg/dL Urine Ketones Trace (Negative) mg/dL Urine Blood Negative (Negative) Urine Nitrite Negative (Negative) Ur Leukocyte Esterase Trace H (Negative) Urine RBC 0-2 (0-2) /HPF Urine WBC 6-10 H (0-5) /HPF Ur Squamous Epith Cells 0-2 (0-2) /HPF Urine Bacteria None Seen (None Seen) Hyaline Casts 0-2 (0-2) /LPF Urine Test NEGATIVE (NEGATIVE) ABG Data Attestation ABG: I personally reviewed and interpreted this ABG as follows: Independent Interpretation I performed an independent interpretation of an: Ultrasound and CT Scan Radiology Impression Discussion of test interpretation with radiology: I have reviewed the radiologist's reading. Independent Historian Clinical information obtained from an independent historian. History obtained from or confirmed by: Other (patient) External Record Review External record reviewed: Other (prior visits) Discharge Plan Discharge Clinical Impression: Ovarian cyst, Abdominal pain Patient Disposition: Home, Self-Care Instructions: Ovarian Cyst (ED), Abdominal Pain (ED) Additional Instructions: Recommend follow-up with primary care provider and your OBGYN. Return to the ED for severe abdominal pain, flank pain, nausea, vomiting, fever, chills, or any other concerning symptoms. Prescriptions: New naproxen 500 mg tablet 500 mg PO BID PRN (Reason: pain) 7 Days Qty: 14 0RF No Action lorazepam [Ativan] 0.5 mg tablet 0.5 mg PO DAILY PRN (Reason: anxiety) Qty: 14 1RF Referrals: Donaldo Ambrose MD [Physician] - (Right ovarian cyst) Stand Alone Forms: Work/School Release Interventions: ED Discharge Assessment Last Done: 06/26/24 23:56 Discharge Date/Time: 06/26/24 23:58 Print Language: [place]
== END 2024-06-26 23:58 | disposition home or self-care (01) ==
PROVIDERS: Physician Assistant; Physician Assistant Medical; Emergency Provider Student in an Organized Health Care Education/Training Program
DX: N83.201 Unspecified ovarian cyst, right side (principal); R10.30 Lower abdominal pain, unspecified; R10.2 Pelvic and perineal pain; R10.31 Right lower quadrant pain
CPT/HCPCS: 36415; 74177; 76830; 76856; 80053; 81001; 81025; 83735; 84702; 85007; 85027; 87086; 93975; 99284; 99285; Q9967